=== PATIENT | male | born 1995 | race Caucasian/White ===

== ENCOUNTER → 2018-07-30 | Outpatient (CLI) | payer OTHER ==
[~2018-07-30] MED LIST: SERT100T PO
== END | disposition home or self-care (01) ==
LOC: STAR 10:06
PROVIDERS: ATTEND Student in an Organized Health Care Education/Training Program
DX: Z02.9 Encounter for administrative examinations, unspecified (principal)

== ENCOUNTER 2018-08-06 14:00 | Day surgery (SDC) | payer OTHER ==
[~2018-08-06] VITALS: Ht 177.8 cm; Wt 75.0 kg
[2018-08-06 14:55] VITALS: BP 114/71
[2018-08-06] MEDS ORDERED: FENTANYL PF 100 MCG/2ML ONE ×2 (15:33→17:04)
[2018-08-06] MEDS ORDERED: PROPOFOL 10 MG/ML, 20ML ONE ×2 (15:33)
[2018-08-06] MEDS ORDERED: MIDAZOLAM 1 MG/ML, 2ML ONE (15:33)
[2018-08-06] MEDS ORDERED: ROCURONIUM 10MG/ML,5ML ONE (15:33)
[2018-08-06] MEDS ORDERED: DEXAMETHASONE 4 MG/ML, 1ML ONE ×2 (15:33)
[2018-08-06] MEDS ORDERED: SUCCINYLCHOLINE 20 MG/ML, 10ML ONE (15:33)
[2018-08-06] MEDS ORDERED: ONDANSETRON 2MG/ML, 2ML ONE (15:34)
[2018-08-06] MEDS ORDERED: ALBUTEROL SULFATE 2.5 MG/3 ML NPPB PRN (16:00)
[2018-08-06] MEDS ORDERED: DIPHENHYDRAMINE 50 MG/ML, 1ML IVPush PRN (16:00)
[2018-08-06] MEDS ORDERED: MEPERIDINE/PF 25MG/0.5ML IVPush PRN (16:00)
[2018-08-06] MEDS ORDERED: HYDROmorphone 1 MG/ML, 1ML IV PRN (16:00)
[2018-08-06] MEDS ORDERED: hydrALAzine 20 MG/ML, 1ML IV PRN (16:00)
[2018-08-06] MEDS ORDERED: PROCHLORPERAZINE 5 MG/ML, 2ML IV PRN (16:00)
[2018-08-06] MEDS ORDERED: DIAZEPAM 5 MG/ML, 2ML IVPush PRN (16:00)
[2018-08-06] MEDS ORDERED: MIDAZOLAM 1 MG/ML, 2ML IV PRN (16:00)
[2018-08-06] MEDS ORDERED: MORPHINE SULFATE 4 MG/ML, 1ML IVPush PRN (16:00)
[2018-08-06] MEDS ORDERED: LORazepam 2 MG/ML, 1ML IVPush PRN (16:00)
[2018-08-06] MEDS ORDERED: LABETALOL 5MG/ML, 20ML IV PRN (16:00)
[2018-08-06] MEDS ORDERED: OXYcodone 5 MG/5 ML ORAL.SOL UDC PO PRN (16:00)
[2018-08-06] MEDS: FENTANYL PF 100 MCG/2ML IV PRN ×3 (17:05→17:17)
[2018-08-06] MEDS ORDERED: OXYcodone 5 MG/5 ML ORAL.SOL UDC ONE (17:11)
[2018-08-06] MEDS ORDERED: ACETAMINOPHEN 650 MG/20.3 ML UDC ONE (17:12)
[2018-08-06 18:16] VITALS: BP 129/72
[2018-08-06] MEDS ORDERED: ONDANSETRON 2MG/ML, 2ML IVPush PRN (19:00)
[2018-08-06] MEDS ORDERED: HYDROcodone/APAP 7.5-325MG/15ML UDC PO PRN (19:00)
[2018-08-06] MEDS ORDERED: LACTATED RINGERS 1,000 ML IV SCH (19:00)
== END 2018-08-06 21:05 | disposition home or self-care (01) ==
LOC: OR 14:00 → 4NOR 14:32 → OR 21:05
PROVIDERS: ATTEND Student in an Organized Health Care Education/Training Program
DX: J35.01 Chronic tonsillitis (principal); J35.3 Hypertrophy of tonsils with hypertrophy of adenoids
CPT/HCPCS: 42826; 88304; J0330; J1100; J2250; J2405; J2704; J3010; G0378